=== PATIENT | male | born 1975 | race Caucasian/White ===

== ENCOUNTER 2018-05-29 23:34 | Emergency (ER) | payer OTHER ==
[~2018-05-29] VITALS: Ht 180.3 cm; Wt 74.8 kg
[~2018-05-29 23:34] MED LIST: BETIMOL5 M1 OPH
--- NOTE | 2018-05-29 23:37 | ED CARDIAC/CP/PALPITATIONS ---
History of Present Illness General Chief Complaint: Chest Pain Stated Complaint: BIBA CP Source: patient Exam Limitations: no limitations Vital Signs & Intake/Output Vital Signs & Intake/Output Vital Signs Date Time Temp Pulse Resp B/P B/P Pulse O2 O2 Flow FiO2 Mean Ox Delivery Rate 05/30 0450 62 20 122/70 99 05/30 0201 98.0 70 23 125/78 98 Room Air 05/30 0014 99.0 71 18 136/78 97 Room Air Allergies Coded Allergies: No Known Allergies (05/18/18) Reconcile Medications Timolol (Betimol) 0.5 % DROPS 1 GTT OPH BID EYE (Reported) Triage Nurses Notes Reviewed? yes Onset: Gradual Duration: week(s):, waxing and waning Timing: recent history Quality/Severity: moderate Location: central Radiation: no radiation Activities at Onset: none Prior Chest Pain/Card Workup: similar symptoms, evaluated in the ED last week. Modifying Factors: Improves With: rest. Worsens With: movement. HPI: 43 yo gentleman no prior medical issues presents with 5/10 sub sternal chest pain since 05/28/18 in the AM. He notes that he was seen last week for the same thing. "It feels better when I scrunch my shoulders forward.... All my enzymes were negative and a d-dimer... I feel better when I take ibuprofen." He notes that the pain sometimes radiates to his left shoulder. 911 called this evening. The medics gave him nitro x 1 without effect. He notes no diaphoresis, dizziness, syncopal type symptoms. 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 "I lift heavy things all the time." Past History Travel History Traveled to [place] past 21 day No Medical History Any Pertinent Medical History? see below for history Neurological: NONE EENT: NONE Cardiovascular: NONE Respiratory: NONE Gastrointestinal: NONE Hepatic: NONE Renal: NONE Musculoskeletal: NONE Psychiatric: NONE Endocrine: NONE Blood Disorders: NONE Cancer(s): NONE GRAIN COMBINER/Reproductive: NONE Surgical History Surgical History: non-contributory Psychosocial History What is your primary language Kazakh Family History Hx Contributory? No Review of Systems Review of Systems Constitutional: Reports: no symptoms. EENTM: Reports: no symptoms. Respiratory: Reports: no symptoms. Cardiovascular: Reports: no symptoms. GI: Reports: no symptoms. Genitourinary: Reports: no symptoms. Musculoskeletal: Reports: no symptoms. Skin: Reports: no symptoms. Neurological/Psychological: Reports: no symptoms. Hematologic/Endocrine: Reports: no symptoms. Immunologic/Allergic: Reports: no symptoms. All Other Systems: Reviewed and Negative Physical Exam Physical Exam Cardiovascular: see below Comments: Review of Systems - except as otherwise noted in HPI Physical Exam Physical Exam General Appearance: well developed/nourished, no apparent distress Head: atraumatic, normal appearance Eyes: Bilateral: normal appearance. Ears, Nose, Throat: normal pharynx, normal ENT inspection Neck: normal inspection, supple, full range of motion Respiratory: normal breath sounds, chest non-tender, no respiratory distress, quiet respiration, lungs clear Cardiovascular: regular rate/rhythm Gastrointestinal: normal bowel sounds, soft, non-tender, no organomegaly Back: normal inspection, normal range of motion Extremities: normal inspection, normal capillary refill, normal range of motion, no edema Neurologic/Psych: no motor/sensory deficits, awake, alert, oriented x 3 Skin: intact, normal color, warm/dry Core Measures ACS in differential dx? No CVA/TIA Diagnosis No Sepsis Present: No Sepsis Focused Exam Completed? No Progress Differential Diagnosis: AMI, costochondritis, musculoskeletal pain, unstable angina Plan of Care: Orders Procedure Date/time Status TROPONIN LEVEL 05/300 Complete EKG 05/30 230 Active TROPONIN LEVEL 05/29 2337 Complete LIPASE 05/29 2337 Complete HEPATIC FUNCTION PANEL 05/29 2337 Complete D-DIMER 05/29 2337 Complete CBC WITHOUT DIFFERENTIAL 05/29 2337 Complete BASIC METABOLIC PANEL 05/29 2337 Complete AMYLASE 05/29 2337 Complete EKG 05/29 2337 Active ETHANOL 05/29 2310 Complete Laboratory Tests 05/30/18 0335: Troponin I < 0.01 05/30/18 0110: Anion Gap 10, Estimated GFR > 60, BUN/Creatinine Ratio 10.0, Glucose 101 H, Calcium 8.0 L, Total Bilirubin 0.2, Direct Bilirubin 0.1, AST 17, ALT 24, Alkaline Phosphatase 65, Troponin I < 0.01, Total Protein 5.7 L, Albumin 3.3 L , Amylase 59, Lipase 205, D-Dimer High Sensitivty < 200, CBC w Diff NO MAN DIFF REQ, RBC 4.06 L, MCV 90.8, MCH 31.7 H, MCHC 34.9, RDW 13.1, MPV 8.7, Gran % 53.1, Lymphocytes % 33.8, Monocytes % 8.9, Eosinophils % 2.9, Basophils % 1.3, Absolute Granulocytes 3.9, Absolute Lymphocytes 2.5, Absolute Monocytes 0.7 H, Absolute Eosinophils 0.2, Absolute Basophils 0.1, Serum Alcohol 175.0 05/30/18 0000: Serum Alcohol Cancelled Diagnostic Imaging: Viewed by Me: Radiology Read. Discussed w/RAD: Radiology Read. CXR Impression: PATIENT: NARENDRA CORBETT PRESENT AGE: 43 PATIENT ACCOUNT NO: [id number] : 75 LOCATION: [facility] ORDERING PHYSICIAN: Adalid Proctor MD SERVICE DATE: 05/29/18 EXAM TYPE: RAD - XRY-PORTABLE CHEST XRAY EXAMINATION: XR PORTABLE CHEST CLINICAL INFORMATION: Chest pain COMPARISON: 05/18/2018 TECHNIQUE: Portable frontal view of the chest was obtained. FINDINGS: The lungs are well expanded. There is no focal consolidation, edema, or effusion. No pneumothorax. The cardiomediastinal silhouette is within normal limits. No acute osseous abnormality. IMPRESSION: Unremarkable examination. DICTATED BY: Munir Fowler MD DATE/TIME DICTATED: 05/30/1811 HARDWARE MANAGER:CLYDE DATE/TIME TRANSCRIBED:05/30/1811 CONFIDENTIAL, DO NOT COPY WITHOUT APPROPRIATE AUTHORIZATION. <Electronically signed in Other Vendor System> SIGNED BY: Munir Fowler MD 05/30/1816 Pre-Hospital EKG: normal axis, normal intervals, normal p-waves, normal QRS complex, normal sinus rhythm Initial ED EKG: normal axis, nsr, no acute changes Repeat EKG: unchanged Departure Departure Disposition: HOME OR SELF CARE Condition: Stable Clinical Impression Primary Impression: Chest pain Secondary Impressions: Alcohol intoxication Referrals: Hailey DUCKWORTH,Evan Jordan (PCP/Family) Departure Forms: Customer Survey General Discharge Information Comments 05/30/18, 4:55am... pt with benign trop/ekgs, pt sleeping comfortably in the ED... pt referred to dr. leal (logistics assistant) Critical Care Note Critical Care Note Critical Care Time: non-applicable
--- NOTE | 2018-05-30 00:17 | RADIOLOGY REPORT ---
EXAMINATION: XR PORTABLE CHEST CLINICAL INFORMATION: Chest pain COMPARISON: 05/18/2018 TECHNIQUE: Portable frontal view of the chest was obtained. FINDINGS: The lungs are well expanded. There is no focal consolidation, edema, or effusion. No pneumothorax. The cardiomediastinal silhouette is within normal limits. No acute osseous abnormality. IMPRESSION: Unremarkable examination.
[2018-05-30 01:18] LABS: ABSOLUTE BASOPHIL COUNT 0.1 /CUMM (0.0-0.2); ABSOLUTE EOSINOPHIL COUNT 0.2 /CUMM (0.0-0.7); ABSOLUTE GRANULOCYTE CT 3.9 /CUMM (1.4-6.5); ABSOLUTE LYMPH COUNT 2.5 /CUMM (1.2-3.4); ABSOLUTE MONOCYTE COUNT 0.7 /CUMM (0.10-0.60); BASOPHIL % 1.3 % (0.0-2.0); EOSINOPHIL % 2.9 % (0-5); GRANULOCYTE % 53.1 % (42.2-75.2); HEMATOCRIT 36.9 % (42-52); MEAN CORPUSCULAR HGB 31.7 PG (27.0-31.0); MEAN CORPUSCULAR HGB CONC 34.9 G/DL (33.0-37.0); MEAN CORPUSCULAR VOLUME 90.8 FL (80.0-94.0); MEAN PLATELET VOLUME 8.7 FL (7.4-10.4); PLATELET COUNT 179 /CUMM (130-400); RBC DISTRIBUTION WIDTH 13.1 % (11.5-14.5); RED BLOOD CELL CT 4.06 /CUMM (4.70-6.10); WHITE BLOOD CELL COUNT 7.4 /CUMM (4.8-10.8)
[2018-05-30 04:50] VITALS: BP 122/70
== END 2018-05-30 04:56 ==
LOC: ERH 23:34
PROVIDERS: Pediatrics
DX: R07.9 Chest pain, unspecified (principal); F10.129 Alcohol abuse with intoxication, unspecified
CPT/HCPCS: 71045; 93005; 93010; 96374; G0480; J0131; J1885